=== PATIENT | female | born 1995 | race Caucasian/White ===

== ENCOUNTER 2021-04-25 13:55 | Observation (INO) | payer OTHER ==
[~2021-04-25 13:55] MED LIST: EXPECTORANT200 MG PO; FLONASE 0.05% N16 GM; HYDROCODON-ACE1 EAC4 PO; IBUPROFEN600 MG PO; NORCO 5-325 TA1 EACH PO; PREDNISONE 50 M50 MG PO; ZITHROMAX250 MG PO; ZOFRAN4 MG PO
== END 2021-04-26 09:16 | disposition home or self-care (01) ==
LOC: GENOP 13:55 → OB 04-26 07:00
PROVIDERS: ADMIT Obstetrics & Gynecology
DX: O47.03 False labor before 37 completed weeks of gestation, third trimester (principal); O99.333 Smoking (tobacco) complicating pregnancy, third trimester; Z3A.34 34 weeks gestation of pregnancy; Z79.899 Other long term (current) drug therapy
CPT/HCPCS: 81001; 83518; 96360; 96361; 96366; 96372; 96375; G0378; J0702; J2300; J3105; J7120

== ENCOUNTER 2021-04-28 20:25 | Outpatient (CLI) | payer OTHER | END 2021-04-28 23:08 | disposition home or self-care (01) | LOC: GENOP 20:25 | DX: O47.03 False labor before 37 completed weeks of gestation, third trimester (principal); O99.891 Other specified diseases and conditions complicating pregnancy; N89.8 Other specified noninflammatory disorders of vagina; O99.333 Smoking (tobacco) complicating pregnancy, third trimester; F17.210 Nicotine dependence, cigarettes, uncomplicated; Z3A.35 35 weeks gestation of pregnancy | CPT/HCPCS: 81001; 83518; G0463 ==

== ENCOUNTER 2021-05-06 17:58 | Inpatient (IN) | payer OTHER ==
[2021-05-06 20:08] LABS: HEMOGLOBIN 10.7 gm/dl (12.3-15.3); RED BLOOD COUNT 3.44 M/UL (4.00-5.10); WHITE BLOOD COUNT 18.7 K/UL (4.5-11.0)
[2021-05-07] MEDS ORDERED: IBUPROFEN800 MG PO (01:34)
[2021-05-07] MEDS ORDERED: HYDROCODON-ACE1 EAC4 PO (01:34)
[2021-05-07] MEDS ORDERED: COLACE 100MG C100 MG PO (01:34)
[2021-05-08 06:41] LABS: HEMOGLOBIN 11.5 gm/dl (12.3-15.3)
== END 2021-05-08 14:07 | disposition home or self-care (01) | DRG 807 ==
LOC: GENOP 17:58 → OB 19:24 → CDU 19:24 → OB 21:05
PROVIDERS: ADMIT Obstetrics & Gynecology
PROC: 4A1HXCZ Monitoring of Products of Conception, Cardiac Rate, External Approach (ICD-10-PCS; 2021-05-06)
PROC: 10907ZC Drainage of Amniotic Fluid, Therapeutic from Products of Conception, Via Natural or Artificial Opening (ICD-10-PCS; 2021-05-06)
PROC: 10E0XZZ Delivery of Products of Conception, External Approach (ICD-10-PCS; principal; 2021-05-07)
DX: O60.14X0 Preterm labor third trimester with preterm delivery third trimester, not applicable or unspecified (principal); Z37.0 Single live birth; Z3A.36 36 weeks gestation of pregnancy; Z20.822 Contact with and (suspected) exposure to COVID-19; Z91.010 Allergy to peanuts; O99.334 Smoking (tobacco) complicating childbirth; F17.210 Nicotine dependence, cigarettes, uncomplicated; O69.81X0 Labor and delivery complicated by cord around neck, without compression, not applicable or unspecified; Z90.49 Acquired absence of other specified parts of digestive tract; O62.2 Other uterine inertia
CPT/HCPCS: 36415; 81001; 82800; 83518; 85014; 85018; 85025; J2210; J2590; J3010; U0002